=== PATIENT | female | born 1955 | race Caucasian/White ===

== ENCOUNTER 2019-12-03 08:06 | Day surgery (SDC) | payer OTHER ==
[~2019-12-03 08:06] MED LIST: Bupivacaine 0.5% 50 ML MDV ONE; Lidocaine 1% with EPINEPHrine 1:100,000 50 ML MDV ONE
[2019-12-03] MEDS ORDERED: ceFAZolin 2 GM in Premix Bag 1 BAG IV ONE (08:30)
[2019-12-03] MEDS ORDERED: Dextrose 5%-Lactated Ringers 1,000 ML IV SCH (08:30)
[2019-12-03] MEDS ORDERED: fentaNYL 100 MCG/2 ML SDV ONE (08:54)
[2019-12-03] MEDS ORDERED: Midazolam 1 MG/ML 2 ML SDV ONE (08:54)
[2019-12-03] MEDS ORDERED: Propofol 200 MG/20 ML SDV ONE ×2 (08:54→10:25)
--- NOTE | 2019-12-11 08:57 | OR ---
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 OPERATIVE PROCEDURE: Right nipple exploration with excision of underlying papilloma (). ANESTHESIA: Local plus IV sedation. INDICATION FOR PROCEDURE: This is a 64-year-old female presenting with some clear nipple discharge that has been persistent and somewhat bothersome at 8 o'clock on the areolar margin. There appeared to be ultrasound finding consistent with___ a papilloma. Clinically, the ductal system that expresses the discharge will be placed under pressure as well. Plan is to proceed with excision of this area. Potential risks including bleeding, infection, cosmetic deformity, possible missed pathology were gone over, and the patient wishes to proceed. DETAILS OF PROCEDURE: The patient was taken to the operating room, after preoperatively mostly identifying the ductal area where the discharge was coming from. It was marked on the breast. The right breast and surrounding areas were prepped and draped while the patient received some IV sedation. The area in the lateral and inferior aspect of the nipple- areolar border and surrounding soft tissues were then anesthetized with 1% lidocaine mixed with Marcaine. An areolar margin incision was made in that area and carried down through the skin and subcutaneous tissue. Dissection then continued underneath the nipple up to the point where the ductal element would enter. In transecting that area, there was some clear discharge consistent with what was being seen preoperatively. The ductal element was then dissected inferiorly and laterally until all the points of that ducal element appeared to have been excised. There was vague firmness in the tissue being excised but nothing grossly suspicious for malignancy per se. Hemostasis was obtained with electrocautery. Incision was then closed with some 3-0 and 4-0 Vicryl stitch deep and a 5-0 Vicryl subcuticular stitch. Steri-Strips with pressure dressing applied. The patient was taken to recovery room in satisfactory condition. Conor Canas MD /[id number]
== END 2019-12-03 11:57 | disposition home or self-care (01) ==
LOC: JP.SDS 08:06
PROVIDERS: ATTEND Surgery
DX: D24.1 Benign neoplasm of right breast (principal); N62 Hypertrophy of breast; E78.5 Hyperlipidemia, unspecified; E11.9 Type 2 diabetes mellitus without complications; E66.9 Obesity, unspecified; Z68.37 Body mass index [BMI] 37.0-37.9, adult
CPT/HCPCS: 19110; 88305; J0690; J2250; J2704; J3010; J3490; J7121